=== PATIENT | female | born 1960 ===

== ENCOUNTER 2023-06-10 09:20 | Inpatient (IN) | payer OTHER ==
[~2023-06-10] VITALS: Ht 160 cm; Wt 84.4 kg
[2023-06-11] MEDS ORDERED: FAMOTI PO (10:22)
[2023-06-11] MEDS ORDERED: TOPROL XL50 M1 PO (10:22)
[2023-06-11] MEDS ORDERED: ZANAFLEX2 M1 PO (10:23)
[2023-06-11] MEDS ORDERED: GRALISE600 MG PO (10:23)
[2023-06-17] MEDS ORDERED: ESOMEPRAZOLE MA40 MG (10:02)
[2023-06-17] MEDS ORDERED: TIZANIDINE HCL4 MG (10:02)
[2023-06-17] MEDS ORDERED: FAMOTIDINE40 MG (10:02)
[2023-06-21] MEDS ORDERED: TRAM1TAB98 PO (09:52)
[2023-06-21] MEDS ORDERED: PEPCID AC20 MG PO (09:53)
[2023-06-21] MEDS ORDERED: DICY20TA PO (09:53)
== END 2023-06-21 12:18 | disposition home or self-care (01) | DRG 330 ==
LOC: SURG 06-17 07:00 → O/R 06-17 07:34 → SURG 06-17 09:45 → SURH 06-17 13:40
PROVIDERS: ADMIT Surgery; ATTEND Surgery
PROC: 0DBP4ZZ Excision of Rectum, Percutaneous Endoscopic Approach (ICD-10-PCS; 2023-06-17)
PROC: 0DJD8ZZ Inspection of Lower Intestinal Tract, Via Natural or Artificial Opening Endoscopic (ICD-10-PCS; 2023-06-17)
PROC: 0DTN4ZZ Resection of Sigmoid Colon, Percutaneous Endoscopic Approach (ICD-10-PCS; principal; 2023-06-17 07:00)
DX: K57.20 Diverticulitis of large intestine with perforation and abscess without bleeding (principal); K56.49 Other impaction of intestine; K56.51 Intestinal adhesions [bands], with partial obstruction; K62.4 Stenosis of anus and rectum; I10 Essential (primary) hypertension